=== PATIENT | female | born 1940 | race Asian ===

== ENCOUNTER 2016-11-25 19:41 | Emergency (ER) | payer OTHER ==
[~2016-11-25] VITALS: Ht 152.4 cm; Wt 54.5 kg
[2016-11-25 19:48] VITALS: TEMP 37.2; Ht 152.4 cm; Wt 54.5 kg
[2016-11-25] MEDS ORDERED: EZETROL PO (20:25)
[2016-11-25] MEDS ORDERED: MULT-188 PO (20:25)
[2016-11-25] MEDS ORDERED: [UNRECOGNIZED DRUG - OTHER] PO (20:25)
[2016-11-25] MEDS ORDERED: ASPI81TA28 PO (20:25)
[2016-11-25] MEDS ORDERED: OLMESARTAN PO (20:25)
[2016-11-25] MEDS ORDERED: AMLO-110 PO (20:25)
[2016-11-25] MEDS ORDERED: MULT-513 PO (20:25)
[2016-11-25] MEDS ORDERED: ACAR50TA3 PO (20:25)
[2016-11-25] MEDS ORDERED: ROSU5TAB PO (20:25)
[2016-11-25] MEDS ORDERED: CALC-388 PO (20:25)
[2016-11-25] MEDS ORDERED: [UNRECOGNIZED DRUG - OTHER] PO (20:25)
[2016-11-25] MEDS ORDERED: OMEG10007 PO (20:25)
[2016-11-25] MEDS ORDERED: [UNRECOGNIZED DRUG - OTHER] PO (20:25)
--- NOTE | 2016-11-25 21:09 | EMERGENCY ROOM VISIT NOTE ---
History Report prepared by Ana: Belgica Hsu Under the Supervision of: Dr. Claudine Burkett D.O. First contact with patient: 20:45 Chief Complaint: URINARY SYMPTOMS Stated Complaint: DYSURIA,HEMMORHAGE OF ANUS RECTUM,POST MENOPAUSAL Nursing Triage Summary: Pt presents with daughter and granddaughter, who is translating. Sent by [facility] who reports vaginal bleeding x 4 days with dysuria. Also c/o rectal bleeding after being disimpacted and having a mineral oil enema. Granddaughter states pt only noted blood in urine and on underwear. Pain with urination. Denies flank pain. History of Present Illness The patient is a 76 year old female who presents to the Emergency Room with complaints of constant urinary symptoms beginning 4 days prior to arrival. Per the patient's granddaughter who is translating, the patient noted 2 weeks ago that she experienced constipation. She does experience constipation very frequently. She was also experiencing mild rectal bleeding. The patient was given a mineral oil enema 4 days ago and had good bowel movements after that. After the enema was given the patient began to experience pain with urination and noticed blood in her urine. This has continued for the last 4 days. The patient was seen at [facility] today and was referred to ED. When examined at [facility], she was told she had vaginal bleeding and redness around the area. The patient denies a history of UTIs, weakness, abdominal pain or unintentional weight loss. She currently does not take a stool softener. Source of History: family Onset: 4 days RISK ASSESSOR Position: other (global) Quality: other (urinary symptoms) Timing: constant Associated Symptoms: + urinary symptoms (pain with urination and blood in urine) Note: The patient is experiencing constipation, rectal bleeding, vaginal bleeding, redness around vagina. Review of Systems See HPI for pertinent positives & negatives. A total of 10 systems reviewed and were otherwise negative. Past Medical & Surgical Medical Problems: (1) Constipation Family History Patient reports no known family medical history. Social History Smoking Status: Never Smoker Smokeless Tobacco Use: No Marital Status: Housing Status: lives with family Occupation Status: retired Current/Historical Medications Scheduled Acarbose (Precose), 50 MG PO BIDM Amlodipine (Norvasc), 5 MG PO DAILY Aspirin (Aspirin Ec), 81 MG PO DAILY Calcium Carbonate-Vitamin D (Calcium + D3 600-200 mg-Unit), 1 TAB PO DAILY Fish Oil ([place]-3), 1 CAP PO DAILY Multiple Vitamins W/ Minerals (Ocuvite), 1 TAB PO DAILY Multivitamins/Minerals (Mvi With Minerals), 1 TAB PO DAILY Rosuvastatin Calcium (Crestor), 5 MG PO DAILY Sulfamethoxazole-Trimethoprim (Bactrim Ds 800MG/160MG), 1 TAB PO BID [Calcium Dobesilate], 2 TAB PO BID [Diamicron Mr], 30 MG PO DAILY [Ezetrol], PO DAILY [Lingzhi], 1 TAB PO DAILY [Olmetec], 20 MG PO DAILY Allergies Coded Allergies: No Known Allergies (Unverified , 11/25/16) Physical Exam Vital Signs Date Time Temp Pulse Resp B/P Pulse Ox O2 Delivery O2 Flow Rate FiO2 11/25/16 23:15 75 20 151/80 95 11/25/16 19:48 37.2 88 18 163/79 95 Room Air Physical Exam HEENT: Head - normocephalic and atraumatic Pupils are equal, round, and reactive to light. Extraocular eye muscles are intact, and sclera are anicteric. Nose - moist nasal mucosa without discharge. Mouth - moist buccal mucosa. Oropharynx is nonerythematous and there is no tonsillar exudate or edema noted. Neck: Supple; no JVD, nuchal rigidity, cervical lymphadenopathy. Heart: Regular rate and rhythm. There is a normal S1 and S2 with no murmurs, clicks, or gallops appreciated. Lungs: Clear to auscultation bilaterally with no wheezes, rales, or rhonchi. Abdomen: Soft, completely nontender, nondistended, with good bowel sounds. There are no palpable pulsatile masses or hepatosplenomegaly. There is no guarding, rigidity, or rebound noted. Vaginal: External exam is unremarkable. On internal exam of the labia, there was some small punctate areas of bleeding. Rectal: Digital exam performed and produced some brown stool with a small amount of bright red blood on my glove. Extremities: No evidence of cyanosis, clubbing, or edema. There are easily palpable peripheral pulses. Skin: warm and dry with good turgor and no rashes. Medical Decision & Procedures Laboratory Results Test 11/25/16 20:00 Urine Color YELLOW Urine Appearance TURBID (CLEAR) Urine pH 5.5 (4.5-7.5) Urine Specific [place] 1.012 (1.000-1.030) Urine Protein NEG (NEG) Urine Glucose (UA) NEG (NEG) Urine Ketones NEG (NEG) Urine Occult Blood 3+ (NEG) Urine Nitrite NEG (NEG) Urine Bilirubin NEG (NEG) Urine Urobilinogen NEG (NEG) Urine Leukocyte Esterase LARGE (NEG) Urine WBC (Auto) >30 /hpf (0-5) Urine RBC (Auto) >30 /hpf (0-4) Urine Hyaline Casts (Auto) 0 /lpf (0-5) Urine Epithelial Cells (Auto) 0-5 /lpf (0-5) Urine Bacteria (Auto) 4+ (NEG) Urine Pathogenic Casts /lpf (0) Laboratory results per my review. Medications Administered Medications (Trade) Dose Ordered Sig/Ghassan Route Start Time Stop Time Status Last Admin Dose Admin Trimethoprim/ Sulfamethoxazole (Septra Ds 800/ 160MG Tab) 1 tab NOW STAT PO 11/25/16 22:47 11/25/16 22:48 DC 11/25/16 23:11 1 TAB Procedure Septra Ds 800/ 160 MG Tab 1 tab PO. ED Course 2056: Past medical records reviewed. The patient was evaluated in room B10. A complete history and physical exam was performed. A urine specimen was obtained and sent for urinalysis. I did a rectal exam and vaginal exam as described above. 2246: Septra Ds 800/ 160 MG Tab 1 tab PO. 2256: I reevaluated the patient. 2300: Upon reevaluation, I discussed findings and results with her granddaughter who translated for the patient. They verbalized agreement of the treatment plan. She was discharged home. Medical Decision The patient is a 76 year old female who presents to the ED with urinary symptoms. Differential diagnosis includes vaginal bleeding, dysfunctional ureteral bleeding, rectal bleeding, UTI, hematuria. Lab findings include: urine analysis showed 3+ blood, large leukocyte esterase, 4+ bacteria, greater than 30 white blood cell count, greater than 30 red blood cell count. Patient presents to the emergency department with significant constipation to the point that she had to take the stool out of her rectum. As a result, she has had some rectal bleeding. Patient also notes some vaginal bleeding and some hematuria. Urinalysis revealed evidence of urinary tract infection. I've suggested the patient started taking a stool softener regularly. She is to avoid bananas and dairy products. I recommended that she follow up with gynecology for a formal pelvic exam. The patient is visiting from [place]. She is not sure whether she will follow-up here or when she returns home. Impression Primary Impression: Hemorrhagic cystitis Additional Impressions: Rectal bleeding Constipation Vaginal bleeding Scribe Attestation The scribe's documentation has been prepared under my direction and personally reviewed by me in its entirety. I confirm that the note above accurately reflects all work, treatment, procedures, and medical decision making performed by me. Departure Information Dispostion Home / Self-Care Prescriptions Sulfamethoxazole-Trimethoprim (Bactrim Ds 800MG/160MG) 1 Tab Tab 1 TAB PO BID, #20 TAB Prov: Claudine Burkett D.O. 11/25/16 Forms HOME CARE DOCUMENTATION FORM, IMPORTANT VISIT INFORMATION Patient Instructions My [facility] Additional Instructions Rest. Bactrim - 1 tab. every 12 hours You must take stool softners to avoid constipation. Avoid dairy products and bananas Follow up with gynecology for full evaluation Problem Qualifiers
[2016-11-25 21:46] LABS: URINE APPEARANCE TURBID (CLEAR); URINE BILIRUBIN NEG (NEG); URINE COLOR YELLOW; URINE EPITHELIAL CELL AUTO 0-5 /lpf (0-5); URINE NITRITE NEG (NEG); URINE PH 5.5 (4.5-7.5); URINE SPECIFIC GRAVITY 1.012 (1.000-1.030); UROBILINOGEN NEG (NEG)
[2016-11-25 21:48] LABS: MANUAL MICROSCOPIC REQUIRED? NO; REVIEW REQ? YES
[2016-11-25] MEDS ORDERED: SULFAMETHOXAZOLE/TRIMETHOPRIM DS 800/160MG TAB PO STA (22:47)
[2016-11-25] MEDS ORDERED: SULF800T23 PO (22:56)
[2016-11-25 23:15] VITALS: BP 151/80; PULSE 75; O2SAT 95
== END 2016-11-25 23:15 | disposition home or self-care (01) ==
LOC: C.EDB 19:44
DX: N30.90 Cystitis, unspecified without hematuria (principal); K62.5 Hemorrhage of anus and rectum; K59.00 Constipation, unspecified; N93.9 Abnormal uterine and vaginal bleeding, unspecified; Z79.82 Long term (current) use of aspirin; Z79.899 Other long term (current) drug therapy